=== PATIENT | male | born 1945 | race Caucasian/White ===

== ENCOUNTER 2017-09-05 08:55 | Emergency (ER) | payer MEDICARE, OTHER ==
[2017-09-05 09:16] VITALS: BMI 34.7
[2017-09-05 09:26] VITALS: O2SAT 94
--- NOTE | 2017-09-05 09:48 | C.PDOC ---
History Of Present Illness VIA TRANS POOR HISTORIAN 72-YEAR-OLD MALE, PRESENTS TO THE EMERGENCY DEPARTMENT WITH CO GEN MALAISE, WEAKNESS X 3 DAYS. INCR GLU YESTERDAY. C/O B/L HAND, LEG PARESTHESIA "FOR YEARS ". NO FEVER, NVD, ABD PAIN. NO SOB/[place]. CO INCR B/L LEG SWELLING X SEV DAYS. 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 Time Seen by Provider: 09/05/17 09:27 Chief Complaint (Nursing): High Blood Sugar History Per: Patient History/Exam Limitations: no limitations Past Medical History Reviewed: Historical Data, Nursing Documentation, Vital Signs Vital Signs: Last Vital Signs Temp 98.0 F 09/05/17 09:24 Pulse 73 09/05/17 09:24 Resp 20 09/05/17 09:24 BP 131/74 09/05/17 09:24 Pulse Ox 94 L 09/05/17 10:39 - Medical History PMH: Diabetes, Fractures, Gastritis, HTN, Hypercholesterolemia Family History: States: No Known Family Hx - Social History Hx Tobacco Use: No Hx Alcohol Use: No Hx Substance Use: No - Immunization History Hx Tetanus Toxoid Vaccination: Yes Hx Influenza Vaccination: No (Not this year) Hx Pneumococcal Vaccination: Yes Review Of Systems Constitutional: Positive for: Weakness, Malaise. Negative for: Fever Cardiovascular: Negative for: Chest Pain, Palpitations Respiratory: Negative for: Shortness of Breath, SOB with Excertion Gastrointestinal: Negative for: Nausea, Vomiting, Abdominal Pain, Diarrhea Musculoskeletal: Positive for: Other (b/l LEG SWELLING) Neurological: Negative for: Weakness, Numbness, Headache, Dizziness Physical Exam - Physical Exam Appears: Non-toxic, No Acute Distress Skin: Normal Color, Warm, Dry, No Rash, Other (GOOD TURGOR) Head: Normacephalic Eye(s): bilateral: PERRL Nose: Normal Oral Mucosa: Moist Lips: Normal Appearing Neck: Normal ROM Chest: Symmetrical Cardiovascular: Rhythm Regular, No Murmur Respiratory: Normal Breath Sounds, No Decreased Breath Sounds, No Accessory Muscle Use, No Rales, No Rhonchi, No Wheezing Gastrointestinal/Abdominal: Soft, No Tenderness Extremity: Pedal Edema (2+, PITTING B/L) Neurological/Psych: Oriented x3, Normal Speech ED Course And Treatment - Laboratory Results Result Diagrams: 09/05/17 10:08 09/05/17 10:40 O2 Sat by Pulse Oximetry: 94 (RA) Pulse Ox Interpretation: Normal - Radiology CXR: Interpreted by Me CXR Interpretation: Yes: Other (VASC MYNOR) Progress - Re-Evaluation Re-evaluation Note: 09/05/17 13:50 EXAM UNCH VSS. - Data Reviewed Data Reviewed: Lab, Diagnostic imaging, EKG, Old records - Continuity of Care Discussed patient case with:: Patient, Family-HIPPA compliant Disposition Counseled Patient/Family Regarding: Studies Performed, Diagnosis, Need For Followup - Disposition Referrals: YOUR,PMD [Other] Disposition: HOME/ ROUTINE Disposition Time: 13:50 Condition: IMPROVED Instructions: Fatigue (DC) Forms: [employer] (Macedonian) Print Language: ERITREAN - Clinical Impression Clinical Impression: Malaise - Scribe Statement The provider has reviewed the documentation as recorded by the Scribe (Stanton Taveras) All medical record entries made by the Scribe were at my direction and personally dictated by me. I have reviewed the chart and agree that the record accurately reflects my personal performance of the history, physical exam, medical decision making, and the department course for this patient. I have also personally directed, reviewed, and agree with the discharge instructions and disposition.
[2017-09-05 10:11] LABS: BASO # 0.1 K/uL (0.0-0.2); BASO % 0.8 % (0.0-2.0); EOS # 0.4 K/uL (0.0-0.7); EOS % 5.5 % (0.0-4.0); HEMOGLOBIN 12.1 g/dL (12.0-18.0); LYMPH # 2.3 K/uL (1.0-4.3); LYMPH % 28.9 % (20.0-40.0); MEAN CELL VOLUME 93.1 fL (80.0-94.0); MEAN CORPUSCULAR HEMOGLOBIN 32.1 pg (27.0-31.0); MEAN CORPUSCULAR HGB CONC 34.4 g/dL (33.0-37.0); MEAN PLATELET VOLUME 8.4 fL (7.2-11.7); MONO # 0.8 K/uL (0.0-0.8); MONO % 9.9 % (0.0-10.0); NEUT # 4.3 K/uL (1.8-7.0); NEUT % 54.9 % (50.0-75.0); NRBC % 0.1 % (0.0-2.0); RBC 3.76 Mil/uL (4.40-5.90); RED CELL DISTRIBUTION WIDTH 14.4 % (11.5-14.5)
[2017-09-05 10:12] LABS: WHITE BLOOD COUNT 7.8 K/uL (4.8-10.8)
[2017-09-05 10:15] LABS: VENOUS BLOOD GAS BASE EXCESS 0.5 mmol/L (0.0-2.0); VENOUS BLOOD GAS PCO2 50 mmHg (40-60); VENOUS BLOOD GAS PO2 24 mm/Hg (30-55); VENOUS BLOOD PH 7.34 (7.32-7.43)
--- NOTE | 2017-09-05 10:21 | RAD ---
PROCEDURE: CHEST RADIOGRAPH, 1 VIEW HISTORY: Diabetic COMPARISON: None available. FINDINGS: LUNGS: The lungs are clear. PLEURA: No pneumothorax or pleural fluid seen. CARDIOVASCULAR: There is mild cardiomegaly. OSSEOUS STRUCTURES: No significant abnormalities. VISUALIZED UPPER ABDOMEN: Normal. OTHER FINDINGS: None. IMPRESSION: Mild cardiomegaly. No active pulmonary disease.
[2017-09-05 11:15] LABS: ALBUMIN 3.3 g/dL (3.5-5.0); ALT/SGPT 17 U/L (21-72); AST/SGOT 39 U/L (17-59); BLOOD UREA NITROGEN 41 mg/dL (9-20); CALCIUM 8.2 mg/dl (8.6-10.4); GFR AFRICAN-AMERICAN 48; GFR NON-AFRICAN AMERICAN 40
[2017-09-05 11:23] LABS: B-TYPE NATRIURETIC PEPTIDE 400 pg/mL (0-900)
[2017-09-05 12:39] LABS: SQUAMOUS EPITHIAL < 1 /hpf (0-5); URINE BILIRUBIN NEGATIVE (NEGATIVE); URINE BLOOD 1+ (NEGATIVE); URINE CLARITY Clear (Clear); URINE COLOR Yellow (YELLOW); URINE GLUCOSE (UA) 3+ mg/dL (Normal); URINE LEUKOCYTE ESTERASE 1+ Leu/uL (Negative); URINE PROTEIN 1+ mg/dL (NEGATIVE); URINE UROBILINOGEN NORMAL mg/dL (0.2-1.0)
[2017-09-05 13:52] VITALS: BP 141/75; PULSE 68; RESP 18; TEMP 98.2
== END 2017-09-05 14:21 | disposition home or self-care (01) ==
LOC: C.ER 08:55
DX: R53.81 Other malaise (principal)

== ENCOUNTER 2018-05-01 19:33 | Emergency (ER) | payer MEDICARE, OTHER ==
[2018-05-01 19:34] VITALS: BMI 34.7
--- NOTE | 2018-05-01 20:13 | C.PDOC ---
History Of Present Illness Patient sent in by PMD after he was found to have high potassium levels. Denies any complaints at this time. Time Seen by Provider: 05/01/18 20:12 Chief Complaint (Nursing): Abnormal Labs History Per: Patient History/Exam Limitations: no limitations Onset/Duration Of Symptoms: Hrs Current Symptoms Are (Timing): Still Present Severity: Moderate Pain Scale Rating Of: 4 Recent travel outside of the [place]: No Past Medical History Reviewed: Historical Data, Nursing Documentation, Vital Signs Vital Signs: Last Vital Signs Temp 98.6 F 05/01/18 19:54 Pulse 92 H 05/01/18 19:54 Resp 18 05/01/18 19:54 BP 167/78 H 05/01/18 19:54 Pulse Ox 97 05/01/18 19:54 - Medical History PMH: Diabetes, Fractures, Gastritis, HTN, Hypercholesterolemia Denies: Chronic Kidney Disease Family History: States: No Known Family Hx - Social History Hx Tobacco Use: No Hx Alcohol Use: Yes (former) Hx Substance Use: No - Immunization History Hx Tetanus Toxoid Vaccination: Yes Hx Influenza Vaccination: No (Not this year) Hx Pneumococcal Vaccination: Yes Review Of Systems Constitutional: Negative for: Fever, Chills Cardiovascular: Negative for: Chest Pain, Palpitations Respiratory: Negative for: Cough, Shortness of Breath Gastrointestinal: Negative for: Nausea, Vomiting Neurological: Negative for: Weakness, Numbness Physical Exam - Physical Exam Appears: Non-toxic Skin: Warm, Dry Head: Normacephalic Oral Mucosa: Moist Neck: Trachea Midline, Supple Chest: Symmetrical, No Tenderness Cardiovascular: Rhythm Regular Respiratory: No Rales, No Rhonchi, No Wheezing Gastrointestinal/Abdominal: Soft, No Tenderness Extremity: Pedal Edema (Trace) Neurological/Psych: Oriented x3 ED Course And Treatment - Laboratory Results Result Diagrams: 05/01/18 20:23 05/01/18 20:23 ECG: Interpreted By Me, Viewed By Me ECG Rhythm: Sinus Rhythm (71), Nonspecific Changes (inf lat ischemic changes) O2 Sat by Pulse Oximetry: 97 (Room air) Pulse Ox Interpretation: Normal Progress Note: EKG, blood work, and urinalysis ordered. spoke with dr pierre. she did order kayexalate for the patient, but patient has not taken it. Is aware of the normal K value and will follow up with dr Pierre in the office on Friday Reevaluation Time: 21:01 Reassessment Condition: Improved Disposition Counseled Patient/Family Regarding: Studies Performed, Diagnosis, Need For Followup - Disposition Referrals: Minda Pierre MD [Primary Care Provider] - Disposition: HOME/ ROUTINE Disposition Time: 20:12 Condition: FAIR Additional Instructions: Please return if symptoms recur Instructions: Hyperkalemia (DC), Potassium Test Forms: [employer] (Chinese) Print Language: MACEDONIAN - Clinical Impression Clinical Impression: Hyperkalemia - Scribe Statement The provider has reviewed the documentation as recorded by the Scribe Cahno Phillips All medical record entries made by the Barneyibsam were at my direction and personally dictated by me. I have reviewed the chart and agree that the record accurately reflects my personal performance of the history, physical exam, medical decision making, and the department course for this patient. I have also personally directed, reviewed, and agree with the discharge instructions and disposition.
[2018-05-01 20:28] LABS: BASO # 0.1 K/uL (0.0-0.2); BASO % 0.9 % (0.0-2.0); EOS # 0.3 K/uL (0.0-0.7); EOS % 3.4 % (0.0-4.0); HEMOGLOBIN 10.8 g/dL (12.0-18.0); LYMPH # 1.7 K/uL (1.0-4.3); LYMPH % 21.7 % (20.0-40.0); MEAN CELL VOLUME 83.6 fL (80.0-94.0); MEAN CORPUSCULAR HGB CONC 32.3 g/dL (33.0-37.0); MEAN PLATELET VOLUME 8.2 fL (7.2-11.7); MONO # 0.6 K/uL (0.0-0.8); MONO % 8.2 % (0.0-10.0); NEUT # 5.1 K/uL (1.8-7.0); NEUT % 65.8 % (50.0-75.0); RBC 3.99 Mil/uL (4.40-5.90); RED CELL DISTRIBUTION WIDTH 14.9 % (11.5-14.5); WHITE BLOOD COUNT 7.7 K/uL (4.8-10.8)
[2018-05-01 20:42] LABS: ALBUMIN 3.7 g/dL (3.5-5.0); CALCIUM 9.1 mg/dl (8.6-10.4)
[2018-05-01 21:16] LABS: SQUAMOUS EPITHIAL < 1 /hpf (0-5); URINE BACTERIA RARE (<OCC); URINE BILIRUBIN NEGATIVE (NEGATIVE); URINE BLOOD NEGATIVE (NEGATIVE); URINE CLARITY Clear (Clear); URINE COLOR Straw (YELLOW); URINE GLUCOSE (UA) 2+ mg/dL (Normal); URINE HYALINE CAST 0-2 /lpf (0-2); URINE LEUKOCYTE ESTERASE NEG Leu/uL (Negative); URINE PROTEIN 2+ mg/dL (NEGATIVE); URINE UROBILINOGEN NORMAL mg/dL (0.2-1.0)
[2018-05-01 21:18] VITALS: BP 176/85; PULSE 72; RESP 20; TEMP 98.7; O2SAT 100
--- NOTE | 2018-05-05 19:15 | CARD ---
APPROVED REPORT Date of service: 05/01/2018 EKG Measurement Heart [id number] <Conclusion> Normal sinus rhythm Indeterminate axis Minimal voltage criteria for LVH, may be normal variant Inferior infarct, age undetermined Abnormal ECG
== END 2018-05-01 21:18 | disposition home or self-care (01) ==
LOC: SUPCPDRO 19:33 → C.ER 19:33
DX: E87.5 Hyperkalemia (principal)